=== PATIENT | male | born 1955 | race Caucasian/White ===

== ENCOUNTER 2025-01-20 08:28 | Emergency (ER) | payer BC, SELFPAY ==
[2025-01-20 08:35] VITALS: BP 190/100
[2025-01-20 08:42] VITALS: BMI 37.5
--- NOTE | 2025-01-20 09:00 | ED.GENMED ---
History of Present Illness
General
Chief Complaint: Rectal Bleeding
Source: patient
Time Seen by Provider: 01/20/25 08:46
History of Present Illness
History of Present Illness:
69-year-old male presents to the emergency room complaining of of bloody stool. Patient states that he began having diarrhea yesterday around 3 PM. His had a GI bug through the weekend. Initially was just watery stool but he began having
blood which she described as bright red. Last bowel movement was this morning around 630 and he noted that there was a fair amount of blood associated with what appeared to be normal stool. No other complaints such as abdominal pain nausea or
vomiting at this time. He did have some nausea when the diarrhea began yesterday. He does not take any oral anticoagulants. No recent antibiotic use.
Past History
Past History
ED Past Medical History: HTN
Social History
Tobacco: Non-smoker
Alcohol: Occasional
Drug: None
Personal:
Phy Exam
Physical Exam
Physical Exam:
General: Awake, Alert, Oriented X3. No acute distress.
Vitals: unremarkable
Head: Atraumatic
Eyes: Pupils equal, EOMI
Throat: Airway intact, no exudates
Neck: Trachea midline
Lungs: Clear and equal b/l
Heart: Regular rate, no murmurs
Abd: Soft, Nontender, No pulsatile mass
Rectal: Small external hemorrhoids, empty rectal vault
Neuro: Nonfocal
Skin: Warm, dry, no rash
Extremities: pulses equal b/l, no edema
Course
Orders/Labs/Results
Orders:
Orders
01/20/25 09:06
Type+Screen Urgent
Complete Blood Count/With Diff Urgent
Comprehensive Metabolic Panel Urgent
Magnesium Urgent
01/20/25 09:44
ABO2 Routine
[employer] Wristband Number:
Associate notified that ABO2 has been ordered: [id number]
Date: 01/20/25
Time: 09:39
Drilling Superintendent ID: [id number]
01/20/25 10:48
CT Abd/pelvis W Iv Cont Urgent
Comment:
Reason For Exam: abd discomfort, hematochezia
01/20/25 11:38
STOOL [C difficile Antigen & Toxins] Urgent
FRANNIE Source: Feces/Stool
Specimen Description:
Date Specimen was Collected: 01/20/25
Time Specimen was Collected: 11:27
Stool Culture Urgent
FRANNIE Source: Feces/Stool
Specimen Description:
Date Specimen was Collected: 01/20/25
Time Specimen was Collected: 11:27
Abnormal Lab Results
01/20/25
09:06
WBC 4.1 L 10^3/uL
(4.8-10.8)
MCH 31.6 H pg
(27.0-31.0)
MPV 11.2 H fL
(7.4-10.4)
Absolute Lymphs (auto) 0.5 L 10^3/uL
(1.2-3.4)
Lymphocytes % 13.2 L %
(20.5-51.1)
Monocytes % 12.0 H %
(1.7-9.3)
Eosinophils % 6.6 H %
(0-6)
Chloride 110 H mmol/L
(98-107)
Glucose 114 H mg/dl
(70-99)
Total Protein 5.9 L g/dl
(6.3-8.2)
01/20/25 09:06
01/20/25 09:06
Vital Signs
Initial and Last Documented VS:
Initial Vital Signs
Temp Pulse Resp BP Pulse Ox
98.1 F 64 16 190/100 98
01/20/25 08:35 01/20/25 08:35 01/20/25 08:35 01/20/25 08:35 01/20/25 08:35
Last Documented Vital Signs
Temp Pulse Resp BP Pulse Ox
98.1 F 80 18 150/70 98
01/20/25 08:35 01/20/25 12:23 01/20/25 12:23 01/20/25 12:23 01/20/25 12:23
MDM/Problems Addressed
Differential Diagnosis Includes:
Infectious colitis, inflammatory bowel disease, external hemorrhoid, diverticular bleed
MDM/Problems Addressed:
Patient presents after having some blood in his stool. Patient had diarrhea preceding the onset of blood. All in all I think the patient has some blood in the stool from a viral gastroenteritis. He has not really had any bloody stool here in the
emergency room. Labs are all reassuring. Imaging shows no acute abnormality.
*Radiology
Radiology exam reviewed: radiology read reviewed
*Pulse Oximetry
Patient hypoxic: no
*Critical Care Note
Total Time (30-74mins, 75-104mins- exclusive of procedures): Not Applicable
ED Attending Note
-
Portions of this chart may have been created with voice recognition software.� Occasional wrong word or��sound alike� substitutions may have occurred due to the inherent limitations of voice recognition software.
Discharge Plan
Departure
Patient Disposition: Home (Routine Discharge)
Date of Disposition: 01/20/25
Time of Disposition: 12:13
Patient with high blood pressure during this ER visit?: Yes
Condition: Good
Discharge Problem:
Rectal bleeding
Instructions: Gastrointestinal Bleeding (DC)
Prescriptions:
No Action
celecoxib 200 mg Capsule
200 mg PO DAILY
fluorouracil [Efudex] 5 % Cream
1 applic TOPICAL BIDPRN PRN (Reason: BODY RASH)
Rx Instructions:
scalp, forehead, HANDS, neck, arms
tamsulosin 0.4 mg Capsule
0.8 mg PO DAILY
lisinopril 40 mg Tablet
40 mg PO DAILY
aloe vera 25 mg Capsule
25 mg PO DAILY
Glucosamine Complex-MSM Capsule
1 cap PO DAILY
tadalafil 5 mg Tablet
5 mg PO DAILY
Visbiome 112.5 billion cell Capsule
1 cap PO DAILY
celecoxib [Celebrex] 200 mg Capsule
200 mg PO QPMPRN PRN (Reason: MILD PAIN)
calcium carbonate [Tums] 200 mg calcium (500 mg) Tablet,Chewable
200 mg PO BIDPRN PRN (Reason: GERD)
Referrals:
Coy Solo DO [Family Provider] -
Lashawn Law MD [Active] -
Activity Restrictions/Additional Instructions:
I believe the rectal bleeding you experienced is related to a recent gastroenteritis. The CAT scan does not show any acute abnormalities. Your labs show a mildly low white blood cell count which can go along with a viral illness. It is important
you follow-up and get a colonoscopy as an outpatient. I have given you contact information for one of our education and training coordinator but certainly call whoever you are most comfortable with
Interventions
Interventions:
*Risk Screen - Suicide Last Done: 01/20/25 08:35
*General Assessment Last Done: 01/20/25 09:30
*Neglect/Abuse Screening Last Done: 01/20/25 08:35
*ED- Fall Risk Assessment Last Done: 01/20/25 08:41
*ED COVID-19 Vaccine History Last Done: 01/20/25 08:41
*Nursing Disposition Last Done: 01/20/25 12:16
PE-Yfsbcn-Pammsfwqgs Assessment Last Done: 01/20/25 09:29
ED- Cardiac Assessment Last Done: 01/20/25 08:54
ED- Pulmonary Assessment Last Done: 01/20/25 08:54
Discharge Date and Time
Discharge Date/Time: 01/20/25 13:10
Print Language: ARMENIAN
[2025-01-20 09:04] VITALS: BP 162/82
[2025-01-20 09:27] LABS: % Basophils 0.2 % (0-2); % Eosinophils 6.6 % (0-6); % Immature Granulocytes 0.2 % (0-0.5); % Lymphocytes 13.2 % (20.5-51.1); % Neutrophils 67.8 % (42.2-75.2); Absolute Eosinophils 0.3 10^3/uL (0-0.7); Absolute Lymphocytes 0.5 10^3/uL (1.2-3.4); Absolute Monocytes 0.5 10^3/uL (0.1-0.6); Absolute Neutrophils 2.8 10^3/uL (1.4-6.5); Hematocrit 43.7 % (39.0-52.0); Mean Corp Hgb Conc. 34.3 g/dL (33.0-37.0); Mean Corpuscular Hgb 31.6 pg (27.0-31.0); Mean Corpuscular Volume 92.2 fL (80.0-94.0); Mean Platelet Volume 11.2 fL (7.4-10.4); Nucleated Red Blood Cells % 0 % (-); Platelet Count 137 10^3/uL (130-400); Red Blood Cell Count 4.74 10^6/uL (4.70-6.10); Red Cell Dist. Width 12.5 % (11.5-14.5); White Blood Cell Count 4.1 10^3/uL (4.8-10.8)
[2025-01-20 09:53] LABS: ALT (SGPT) 27 U/L (0-50); AST (SGOT) 23 U/L (17-59); Albumin 3.9 g/dl (3.5-5.0); Alkaline Phosphatase 46 U/L (38-126); Blood Urea Nitrogen 19 mg/dl (9-20); Calcium 8.4 mg/dl (8.4-10.2); Carbon Dioxide 23 mmol/L (22-30); Chloride 110 mmol/L (98-107); Estimated Creatinine Clearance 91 ml/min; Glucose 114 mg/dl (70-99); Potassium 4.4 mmol/L (3.5-5.1); Sodium 138 mmol/L (135-145); Total Bilirubin 1.1 mg/dl (0.2-1.3); Total Protein 5.9 g/dl (6.3-8.2); eGFR > 60.00
[2025-01-20 10:00] VITALS: BP 152/77
[2025-01-20 10:40] LABS: Magnesium 1.8 mg/dl (1.6-2.3)
[2025-01-20 12:23] VITALS: BP 150/70
== END 2025-01-20 13:10 | disposition home or self-care (01) ==
LOC: EMR 08:28
PROVIDERS: EMERGENCY PHYSICIAN Emergency Medicine; FAMILY PHYSICIAN Student in an Organized Health Care Education/Training Program
DX: K62.5 Hemorrhage of anus and rectum (principal); R19.7 Diarrhea, unspecified; R11.0 Nausea; K64.4 Residual hemorrhoidal skin tags; I10 Essential (primary) hypertension
CPT/HCPCS: 99284; 74177; 80053; 83735; 85025; 86850; 86900; 86901; 87045; 87046; 87324; 87427; 87449; Q9967